=== PATIENT | male | born 1985 | race Caucasian/White ===

== ENCOUNTER 2024-01-31 08:00 | Outpatient (CLI) | payer OTHER ==
[2024-01-31 21:33] LABS: INFLUENZA A- RESP PCR PANEL NOT DETECTED; INFLUENZA B - RESP PCR PANEL NOT DETECTED; RSV- RESP PCR PANEL NOT DETECTED; SARS-CoV-2 -RESP PCR PANEL NOT DETECTED
== END 2024-01-31 23:59 | disposition home or self-care (01) ==
LOC: LAB.N 08:00
PROVIDERS: ATTEND Registered Nurse
DX: R07.89 Other chest pain (principal); R50.9 Fever, unspecified
CPT/HCPCS: 87637

== ENCOUNTER 2024-01-31 08:00 | Outpatient (CLI) | payer OTHER ==
--- NOTE | 2024-02-01 18:21 | XRAY Report ---
PROCEDURE: Chest 2V INDICATIONS: ATYPICAL CHEST PAIN TECHNIQUE: 2 views of the chest were acquired. COMPARISON: None. FINDINGS: Surgical changes and devices: None. Lungs and pleura: No pleural effusions or pneumothorax. Lungs are clear. Mediastinum: Mediastinal contours appear normal. Heart size is normal. Bones and chest wall: No suspicious bony lesions. Overlying soft tissues appear unremarkable. IMPRESSION: No acute cardiopulmonary process. Reviewed by: Yomi Obrien MD on 02/01/2024 6:20 PM PDT Approved by: Yomi Obrien MD on 02/01/2024 6:20 PM PDT Station ID: [id number]
== END 2024-01-31 23:59 | disposition home or self-care (01) ==
LOC: DI.S 08:00
PROVIDERS: ATTEND Registered Nurse
DX: R07.89 Other chest pain (principal); R50.9 Fever, unspecified; K20.90 Esophagitis, unspecified without bleeding
CPT/HCPCS: 87637